=== PATIENT | female | born 1990 | race African-American/Black ===

== ENCOUNTER 2016-10-22 09:06 | Emergency (ER) | payer BC, OTHER ==
[2016-03-07 08:07] VITALS: BP 149/65
[~2016-10-22] VITALS: Ht 160 cm; Wt 77.1 kg
[~2016-10-22 09:06] MED LIST: AMOX1TAB58 PO; NITR100C62 PO; PRED20TA PO; VENTOLIN HFA18 GM INH
[2016-10-22] MEDS ORDERED: metroNIDAZOLE 500 MG TABLET PO ONE (10:00)
[2016-10-22] MEDS ORDERED: cefTRIAXone IM 250 MG VIAL IM ONE (10:00)
[2016-10-22] MEDS ORDERED: AZITHROMYCIN 250 MG TABLET. PO ONE (10:00)
--- NOTE | 2016-10-22 10:21 | PHYS DOC ---
Past Medical History Past Medical History: Asthma, Bronchitis, Other Additional Past Medical Histor: HEART MURMUR, PCOS Past Surgical History: Other Additional Past Surgical Histo: OVARIAN CYST REMOVAL Alcohol Use: None Drug Use: Marijuana Adult General Chief Complaint Chief Complaint: VAGINAL PROBLEM HPI HPI Patient is a 25 year old female with history of asthma who presents with vaginal discharge and irritation for 2-3 days. Patient is concerned about STDs and would like to be tested and treated. Patient denies any urgency frequency dysuria. Review of Systems Review of Systems Constitutional: Denies fever or chills [] Eyes: Denies change in visual acuity, redness, or eye pain [] GI: Vaginal discharge and irritation : Denies dysuria or hematuria [] Musculoskeletal: Denies back pain or joint pain [] Integument: Denies rash or skin lesions [] Neurologic: Denies headache, focal weakness or sensory changes [] Endocrine: Denies polyuria or polydipsia [] Current Medications Current Medications Current Medications Medications (Trade) Dose Ordered Sig/Sanya Start Time Stop Time Status Last Admin Dose Admin Azithromycin (Zithromax) 1,000 mg 1X ONCE 10/22/16 10:00 10/22/16 10:01 DC 10/22/16 10:51 1,000 MG Ceftriaxone Sodium (Rocephin Im) 250 mg 1X ONCE 10/22/16 10:00 10/22/16 10:01 DC 10/22/16 10:52 250 MG Metronidazole (Flagyl) 2,000 mg 1X ONCE 10/22/16 10:00 10/22/16 10:01 DC 10/22/16 10:51 2,000 MG Allergies Allergies Allergies Coded Allergies Type Severity Reaction Last Updated Verified No Known Drug Allergies 09/27/13 No Physical Exam Physical Exam Constitutional: Well developed, well nourished, no acute distress, non-toxic appearance. [] HENT: Normocephalic, atraumatic, bilateral external ears normal, oropharynx moist, no oral exudates, nose normal. [] Abdomen: Bowel sounds normal, soft, no tenderness, no masses, no pulsatile masses. [] Pelvic exam External pelvic appears normal, cervix is closed, no CMT. No adnexal tenderness , trace amount of clear white discharge in the vaginal vault. Skin: Warm, dry, no erythema, no rash. [] Back: No tenderness, no CVA tenderness. [] Extremities: No tenderness, no cyanosis, no clubbing, ROM intact, no edema. [] Neurologic: Alert and oriented X 3, normal motor function, normal sensory function, no focal deficits noted. [] Psychologic: Affect normal, judgement normal, mood normal. [] Current Patient Data Vital Signs Vital Signs Date Time Temp Pulse Resp B/P (MAP) Pulse Ox O2 Delivery O2 Flow Rate FiO2 10/22/16 09:10 98.1 55 18 170/81 (110) 100 Room Air 98.1 Lab Values Laboratory Tests Test 10/22/16 08:31 10/22/16 10:40 POC Urine HCG, Qualitative Hcg negative (Negative) Urine Collection Type Void Urine Color Yellow Urine Clarity Turbid Urine pH 8.5 Urine Specific [place] 1.020 Urine Protein Negative mg/dL (NEG-TRACE) Urine Glucose (UA) Negative mg/dL (NEG) Urine Ketones (Stick) Negative mg/dL (NEG) Urine Blood Negative (NEG) Urine Nitrite Negative (NEG) Urine Bilirubin Negative (NEG) Urine Urobilinogen Dipstick 0.2 mg/dL (0.2 mg/dL) Urine Leukocyte Esterase Small (NEG) Urine RBC 0 /HPF (0-2) Urine WBC 5-10 /HPF (0-4) Urine Squamous Epithelial Cells Mod /LPF Urine Amorphous Sediment Present /HPF Urine Bacteria Mod /HPF (0-FEW) Urine Mucus Mod /LPF Microbiology 10/22/16 Wet Prep - Final, Complete EKG EKG [] Radiology/Procedures Radiology/Procedures [] Course & Med Decision Making Course & Med Decision Making Pertinent Labs and Imaging studies reviewed. (See chart for details) This is a 25-year-old female patient who presents to the ED today with vaginal discharge and irritation for 3 days. Patient is concerned about STDs and would like to be tested and treated. She was given Rocephin Flagyl and azithromycin. STD swabs pending. Wet prep positive for bacterial vaginosis, discharged with Flagyl. Urine has small amount of leukocytes though it appears contaminated. Patient was instructed to contact all has sex partners let them know she was treated for STDs and ask them to get treatment too. Dragon Disclaimer Dragon Disclaimer This electronic medical record was generated, in whole or in part, using a voice recognition dictation system. Departure Departure Impression: Primary Impression: Concern about STD in female without diagnosis Additional Impression: Bacterial vaginosis Disposition: HOME, SELF-CARE Condition: STABLE Referrals: NO PCP (PCP) Follow-up with your IT PROGRAM MANAGER or the health department for further STD concerns Patient Instructions: Bacterial Vaginosis, Sexually Transmitted Disease, Easy- to-Read Additional Instructions: You were seen in the ED for vaginal irritation. We treated you prophylaxis for STDs. You tested positive for bacterial vaginosis, this is not a sexually transmitted diseases. This is an alteration in women's vaginal discharge. It's treated with Flagyl. We sent you home with the medication to treat it. Contact all your sex partners, let them know you were treated for STDs and ask them to seek treatment too. Scripts Metronidazole (FLAGYL) 500 Mg Tablet 1 TAB PO BID, #10 TAB Prov: FITZ PEARSON APRN 10/22/16 Problem Qualifiers FITZ PEARSON APRN Oct 22, 2016 10:21
[2016-10-22 10:58] LABS: BILIRUBIN,URINE NEGATIVE (NEG); GLUCOSE,URINE NEGATIVE (NEG); NITRITE,URINE NEGATIVE (NEG); PH,URINE 8.5; PROTEIN,URINE NEGATIVE (NEG-TRACE); UROBILINOGEN,URINE 0.2 mg/dL (0.2 mg/dL)
[2016-10-22 11:09] LABS: SQUAMOUS EPITHELIAL CELL,UR MOD /LPF
[2016-10-22 11:10] LABS: BACTERIA,URINE MOD /HPF (0-FEW); RBC,URINE 0 /HPF (0-2)
[2016-10-22] MEDS ORDERED: METR500T PO (11:41)
== END 2016-10-22 11:52 | disposition home or self-care (01) ==
LOC: ER 09:06
DX: Z11.3 Encounter for screening for infections with a predominantly sexual mode of transmission (principal); N76.0 Acute vaginitis; J45.909 Unspecified asthma, uncomplicated; E28.2 Polycystic ovarian syndrome; F12.10 Cannabis abuse, uncomplicated
CPT/HCPCS: 81001; 81025; 87491; 87591; 96372; 99284; J0696; Q0111; Q0144

== ENCOUNTER 2017-07-30 04:47 | Emergency (ER) | payer SELFPAY, BC ==
[2017-07-30 05:01] LABS: URINE HCG POC HCG NEGATIVE (Negative)
[2017-07-30 05:25] LABS: ADD MAN DIFF? NO
[2017-07-30] MEDS: ALBUTEROL SULFATE 2.5 MG/3 ML NEBU. INH (05:30)
[2017-07-30] MEDS: IPRATRPIUM/ALBUTEROL 0.5/2.5MG 3 ML NEBU. NEB (05:30)
[2017-07-30] MEDS: methylPREDNISolone SOD SUCC PF 125 MG/2 ML VIAL. IV (05:31)
[2017-07-30 05:32] LABS: BASO # 0.1 x10^3/uL (0.0-0.2); BASO % 1 % (0-3); EOS # 0.4 x10^3/uL (0.0-0.7); EOS % 3 % (0-3); HEMATOCRIT 37.5 % (36.0-47.0); HEMOGLOBIN 11.9 g/dL (12.0-15.5); LYMPH # 4.6 x10^3/uL (1.0-4.8); LYMPH % 34 % (24-48); MEAN CORPUSCULAR HEMOGLOBIN 24 pg (25-35); MEAN CORPUSCULAR HGB CONC 32 g/dL (31-37); MEAN CORPUSCULAR VOLUME 74 fL (79-100); MONO # 0.9 x10^3/uL (0.0-1.1); MONO % 7 % (0-9); NEUT # 7.5 x10^3uL (1.8-7.7); NEUT % 56 % (31-73); PLATELET COUNT 286 x10^3/uL (140-400); RED BLOOD COUNT 5.06 x10^6/uL (3.50-5.40); RED CELL DISTRIBUTION WIDTH 15.2 % (11.5-14.5); WHITE BLOOD COUNT 13.6 x10^3/uL (4.0-11.0)
[2017-07-30 05:38] LABS: ANION GAP 10 (6-14); BLOOD UREA NITROGEN 9 mg/dL (7-20); BUN/CREATININE RATIO 11 (6-20); CALCIUM 8.6 mg/dL (8.5-10.1); CARBON DIOXIDE 25 mmol/L (21-32); CHLORIDE 105 mmol/L (98-107); CREATININE 0.8 mg/dL (0.6-1.0); GFR 103.3; GLUCOSE 101 mg/dL (70-99); POTASSIUM 3.8 mmol/L (3.5-5.1); SODIUM 140 mmol/L (136-145)
[2017-07-30 05:45] LABS: ALBUMIN 3.5 g/dL (3.4-5.0); ALK PHOS 70 U/L (46-116); ALT (SGPT) 23 U/L (14-59); AST (SGOT) 14 U/L (15-37); TOTAL BILIRUBIN 0.2 mg/dL (0.2-1.0)
== END 2017-07-30 06:36 | disposition home or self-care (01) ==
LOC: ER 04:47
DX: J45.901 Unspecified asthma with (acute) exacerbation (principal); E28.2 Polycystic ovarian syndrome; F12.10 Cannabis abuse, uncomplicated; Z79.899 Other long term (current) drug therapy
CPT/HCPCS: 36415; 71045; 80053; 81025; 85025; 93005; 94640; 96374; 99285-25; J2930; J7613; J7620

== ENCOUNTER 2017-10-14 22:34 | Emergency (ER) | payer OTHER ==
[2017-10-14] MEDS: methylPREDNISolone SOD SUCC PF 125 MG/2 ML VIAL. IV (22:49)
[2017-10-14] MEDS: IPRATROPIUM BROMIDE 0.5 MG/2.5 ML NEBU. NEB (22:57)
[2017-10-14] MEDS: ALBUTEROL SULFATE 2.5 MG/3 ML NEBU. CONT NEB (22:57)
== END 2017-10-15 00:15 | disposition home or self-care (01) ==
LOC: ER 10-15 00:15
DX: J45.41 Moderate persistent asthma with (acute) exacerbation (principal); F12.10 Cannabis abuse, uncomplicated
CPT/HCPCS: 94640; 94644; 96374; 99285-25; J2930; J7613; J7644